=== PATIENT | male | born 1995 | race Caucasian/White ===

== ENCOUNTER → 2020-03-23 14:29 | Outpatient (BNVA) | payer OTHER, SELFPAY | PROVIDERS: Visit Provider Nurse Practitioner Family | DX: Z11.59 Encounter for screening for other viral diseases (principal) | CPT/HCPCS: 87635 ==

== ENCOUNTER 2022-04-27 21:20 | Emergency (ER) | payer MEDICAID, SELFPAY ==
[2022-04-27 21:23] VITALS: BP 112/76; PULSE 79; RESP 18; TEMP 36.6; O2SAT 98; BMI 18.3
--- NOTE | 2022-04-27 21:31 | ED_ITS ---
HPI - Allergic Reaction General: Chief complaint: Allergic Reaction Stated complaint: ALLERGIC REACTION Time Seen by Provider: 04/27/22 21:21 Source: patient History of Present Illness: HPI narrative: 26-year-old male patient complains of an allergic reaction. This happened in some proximity to eating a banana. He notes that he developed a rash, his face started itching, and he began to get sick to his stomach. He vomited 1 time. He felt like his lips were swollen. He had some shortness of breath. He took 2 Benadryl early in the process, but threw them up. He called EMS following this. He was given 1 dose of 50 mg of IV Benadryl in route, and is feeling much better. He notes that his hives have almost gone . MD complaint: allergic reaction, hives and facial swelling Onset (ago): minute(s) Exposure: unknown and food (Potentially) Associated symptoms: Reports difficulty breathing, dizziness (Resolved) and vomiting; Deny abdominal pain, dysphagia, facial swelling, hoarseness or tongue swelling Severity: moderate Treatment prior to arrival: benadryl Review of Systems Const: Denies: fever(s) or chills Eyes: Denies: change in vision ENMT: Denies: hoarseness Card: Denies: chest pain or palpitations Resp: Reports: dyspnea; Denies: productive cough or non-productive cough GI: Reports: vomiting; Denies: abdominal pain, dysphagia or diarrhea Skin/Breast: Reports: rash, pruritus and erythema Neuro: Reports: dizziness (Resolved); Denies: headache(s) All/Imm: Denies: tongue swelling or facial swelling Physical Exam Const: COMMON NORMALS: no acute distress GENERAL APPEARANCE: cooperative; not ill appearing and not frail appearing HENMT: COMMON NORMALS: normocephalic, atraumatic and Normal external nose present HEAD & SCALP: normocephalic and atraumatic FACE & SINUS: normal facial exam and face symmetric NOSE: Normal external nose present Eye: COMMON NORMALS: Equal, round and reactive pupils present and EOMs intact bilaterally PUPIL: Yes Equal, round and reactive pupils present Neck/C-Spine: GENERAL: Yes trachea midline Chest: CHEST: Yes Symmetrical chest wall rise Resp: COMMON NORMALS: normal respiratory effort, No retractions, No use of accessory muscles and clear to auscultation bilaterally AUSCULTATION: clear to auscultation bilaterally Cardio: COMMON NORMALS: regular rate and regular rhythm RATE: regular rate RHYTHM: regular rhythm GI: COMMON NORMALS: Normal to inspection, nondistended, normoactive bowel lana nds present Extremity: COMMON NORMALS: no pedal edema Neuro: ELIZABETH COMA SCALE: document GCS findings Elizabeth coma scale eye opening: Spontaneous [place] coma scale verbal response: Orientated Elizabeth coma scale motor response: Obey commands Elizabeth coma scale total score: 15 SENSORY EXAM: Yes extremities (intact) Psych: COMMON NORMALS: speech normal SPEECH: Yes normal speech Skin: NARRATIVE SKIN EXAM: Scattered urticaria. Course Vital Signs: Vital signs: Vital Signs Temperature 98 F 04/27/22 21:23 Pulse Rate 71 04/27/22 22:20 Respiratory Rate 18 04/27/22 22:20 Blood Pressure 112/76 04/27/22 22:20 Pulse Oximetry 98 04/27/22 22:20 Oxygen Delivery Me thod 04/27/22 21:23 MDM - Allergic Reaction Medical Decision Making Patient significantly improved after IV Benadryl administration. Giving him Pepcid and Solu-Medrol here. We will send him home on a tapering dose of steroid. Discharge Plan Discharge Patient Disposition: Home Clinical Impression: Allergic reaction, Urticaria Condition: Stable Prescriptions: New Medrol (Emre) 4 mg tablets,dose pack See Rx Instructions .ROUTE .COMPLEX Qty: 21 0RF Rx Instructions: orally per package directions Discharge Orders: Discharge ED (Routine); Ordered 04/27/22 Ordered By: Henok Baird Activity Restrictions/Additional Instructions: Take Benadryl 25 mg 3 times daily for the next 24 hours, then as needed. Other medications as directed. Return for worsening symptoms such as trouble breathing, vomiting, facial swelling, etc. 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
[2022-04-27] MEDS: famotidine 20 mg/2 mL INJ IVP (21:38)
[2022-04-27 22:20] VITALS: BP 112/76; PULSE 71; RESP 18; O2SAT 98
== END 2022-04-27 22:22 | disposition home or self-care (01) ==
PROVIDERS: Emergency Provider Emergency Medicine
DX: L50.0 Allergic urticaria (principal); T78.40XA Allergy, unspecified, initial encounter
CPT/HCPCS: 96374; 96375; 99284; J2930; J3490

== ENCOUNTER → 2024-11-05 13:57 | Outpatient (BNVA) | payer SELFPAY | PROVIDERS: Visit Provider Registered Nurse Neonatal Intensive Care | DX: R42 Dizziness and giddiness (principal) | CPT/HCPCS: 80053; 85025 ==

== ENCOUNTER 2025-02-10 16:14 | Emergency (ER) | payer BC, MEDICAID, SELFPAY ==
--- OUTSIDE RECORDS SUMMARY | 2016-08-16 03:47 | XMS_ITS | Continuity of Care Document ---
Author Organization [employer] [facility] ers Address [address] [place] [address] Phone Care Team Providers Care Occupational Health Manager Name Role Phone CabreraDoris arguello OD Unavailable Unavailable Allergies, Adverse Reactions, Alerts Substance Reaction Status Criticality No Known Allergies Active No Inform ation Medications Medication Instructions Dosage Effective Dates (start - stop) Status Comments No Drug Therapy Prescribed Procedures Procedure Date Script & Fit Contact; Ex Aphak 17 Refraction EST. Routine Exam Comprehensive 017 Cntct Lens Hydrophilic Sph/bill 17 Script & Fit Contact; Ex Aphak 15 EST. Routine Exam Comprehensive 015 Cntct Lens Hydrophilic Sph/bill 15 New Routine Exam Comprehensive 13 Script & Fit Contact; Ex Aphak 13 Cntct Lens Hydrophilic Sph/bill 13 EST. Routine Exam Comprehensive 010 Refraction Script & Fit Contact; Ex Aphak 10 Cntct Lens Hydrophilic Sph/bill 10 Advance Directives Directive Yes / No Effective Date File Name No Information Encounters Encounter Description Practice Location Reason(s) For Visit Diagnoses Date Provider Providers Copied on Encounter [employer] [facility], [address], [place], [place], [id number] , [place] tel: [phone] [facility] No Information Jul-3 7 Cabrera OD Doris. [address], [place], [address], [place]. tel: [phone] Referring Provider: Doris Cabrera OD, [address], [place], [address]. tel:[phone] [facility] [employer] [facility], [address], [place], [place], [id number] , [place] tel: [phone] [facility] routine exam (chief complaint) Encounter for exam of eyes and vision w abnormal findingsRegular astigmatism, bilateral Jul- 7 Cabrera OD Doris. [address], [place], [address], [place]. tel: [phone] Referring Provider: Doris Cabrera OD, [address], [place], [address]. tel:[phone] [facility], [address], [place], [place], [address] , [place] tel: [phone] [facility] routine exam (chief complaint) Eye & Vision ExaminationRegular Astigmatism Jul- 5 Cabrera OD Doris. [address], [place], [address], [place]. tel: [phone] Referring Provider: Doris Cabrera OD, [address], [place], [address]. tel:[phone] [employer] [facility], [address], [place], [place], [address] , [place] tel: [phone] [facility] Eye & Vision ExaminationRegular Astigmatism Mtai- 3 Cabrera OD Doris. [address], [place], [address], [place]. tel: [phone] Referring Provider: Doris Cabrera OD, [address], [place], [address]. tel:[phone] [employer] [facility], [address], [place], [place], [address] , [place] tel:[phone] [facility] Eye & Vision ExaminationKeratitis Nos 9-201 0 Cabrera OD Doris. [address], [place], [address], [place]. tel:[phone] Referring Provider: Doris Cabrera OD, [address], [place], [address]. tel:[phone] Family History Family Member Type Diagnosis Age At Onset Grandfather (m) Problem (finding) Cancer Grandfather (p) Problem (finding) cataract Grandmother (m) Problem (finding) HBP Grandmother (m) Problem (finding) Arthritis Mother Problem (finding) Amblyopia Uncle Problem (finding) Diabetes mellitus Payers Payer name Insurance type Covered republican ID Authoriza tion(s) VSP CI [id number] Social History Type Description Quantity Date Captured Comments Alcohol Use Details Unknown Caffeine Use Details Unknown Tobacco Use Status No Information Smoking Status No Information Sex Male Chief Complaint And Reason For Visit No Information Reason For Referral Reason For Referral No Information History Of Present Illness Encounter Date Complaint History Of Prese nt Illness routine exam The 20 year old male presents for routine exam in both eyes. Pt. states he does need to order more ctl. He is happy w/ the current brand but distance vision has changes some. He does wear glasses sometimes too. He got them online and thinks he see's okay w/ them but they are not perfect. Pt. sleeps in lenses lenses and replaces monthly. routine exam The 18 year old male presents for routine exam in both eyes. Patient's last eye exam was about 2 years ago. Patient reports decreased vision. Symptom(s) affect distance vision mildly when wearing contats. Patient noted decent comfort with lenses. 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 Functional Status Date Functional Assessmen t No Information Medications Administered Medication Instructions Dosage Effective Dates (start - stop) Status Comments No Drug Therapy Prescribed Instructions Date Instruction Additional Infor emily Encounter for examin ation of eyes and vision with abnormal findings, - Discussed diagnosis and treatment options with patient. Glasses and Contact Lens Rx given. Advised protective eyewear, including from the sun's UV rays. Pt was informed that it is healthier not to sleep in lenses and not to wear contacts if eyes are red or irritated. Patient instructed to call DONALD and return to clinic with any changes in vision, pain, redness or blur. Recommended back up glasses to use if unable to wear contact lenses for any reason. Yearly eye exams. Related to Encounter for examination of eyes and vision with abnormal findings Regular astigmatism, bilateral, OU - Contact Lens Rx final, OK to order supply. Copy of CL Rx given to patient.Advise complete exam and contact lens progress check in one year and wear lenses in. I strongly advise he does not sleep in lenses and replace monthly. Related to Regular astigmatism, bilateral Eye & Vision Examina tion, OU - Discussed diagnosis and treatment options with patient. Glasses and Contact Lens Rx given. Advised protective eyewear, including from the sun's UV rays. Pt was informed that it is healthier not to sleep in lenses and not to wear contacts if eyes are red or irritated. Patient instructed to call DONALD and return to clinic with any changes in vision, pain, redness or blur. Recommended back up glasses to use if unable to wear contact lenses for any reason. Yearly eye exams. Related to Eye & Vision Examination Regular Astigmatism, OU - Contact Lens Rx final, [place] to order supply, since pt is on spring break. Copy of CL Rx given to patient.Advise complete exam and contact lens progress check in one year and wear lenses in.Advise refit to toric lenses to correct astigmatism. Advise not to sleep in contacts and monthly replacement, to avoid more astigmatism. Related to Regular Astigmatism Myopic Astigmatism, OU - Discussed diagnosis in detail with patient. Discussed treatment options with patient. Related to Myopic Astigmatism Routine Examination, OU - New glasses Rx was given today. Patient given update CLs today. Related to Routine Examination - 1 yr TE Premium up grade referral made for LASIK. Related to Routine Examination - Return in 1 year for TE, prn R elated to Routine Examination Routine Examination, OU Myopia - New glasses Rx was given today. Patient given update CLs today. Patient given new CLs today. CL Dos & Dont's signed. Related to Routine Examination Keratitis Nos, OD - new problem monitor eyes for pain, redness, blur, light sensitivity. Discontinue CLs and call with symptoms. - Discussed diagnosis in detail with patient. Discussed treatment options with patient. Max WT 1 wk on CLs, may need to go DW, if problems. Advised back up glasses. Related to Keratitis Nos Assessments Type Assessment Date No Information Patient Care Teams Name Effective Dates (start - stop) Status Members No Information
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
[2025-02-10 16:33] VITALS: BP 156/101; PULSE 77; RESP 16; TEMP 36.9; O2SAT 98; BMI 27.1
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
--- NOTE | 2025-02-10 17:00 | W.ED.TRAUMA ---
HPI - Trauma General: Chief Complaint: Trauma Stated Complaint: Car fell on L foot Pain in L ankle Time Seen by Provider: 02/10/25 16:33 History of Present Illness: Patient is a 29-year-old male without medical issues, reports to the emergency room after a truck fell on his left big toe. Patient stated he was working on the bumper of a truck, when it came off the violeta when he was pulling on it, and landed directly on his left toe. The toenail has been up, and bleeding. This occurred just prior to arrival. He did not have any loss of consciousness. Associated symptoms: Denies abdominal pain, chest pain, fever(s), nausea, syncope or vomiting Related Data Previous Rx's ?Medication ?Instructions ?Recorded cephalexin 500 mg capsule 500 mg PO BID 3 days #6 caps 02/10/25 methocarbamol 750 mg tablet 750 mg PO Q8H PRN muscle spasm #30 02/10/25 tabs Allergies Allergy/AdvReac Type Severity Reaction Status Date / Time Penicillins Allergy unknown Verified 11/05/24 12:59 Review of Systems Const: Denies: fever(s) ENMT: Denies: throat pain, ear or mastoid pain, nasal discharge, nasal congestion or sinus pain Card: Reports: pre-syncope; Denies: chest pain, edema, swelling of feet/ankles, syncope or dyspnea on exertion Resp: Denies: dyspnea or wheezing GI: Denies: abdominal pain, nausea, vomiting or diarrhea Musc: Reports: extremity pain, extremity swelling and joint pain Skin/Breast: Denies: rash Psych: Denies: difficulty concentrating PFSH ED PFSH: Social History Smoking and tobacco/nicotine status: former use of tobacco/nicotine Physical Exam Const: COMMON NORMALS: no acute distress, average body habitus and patient oriented x3 HENMT: COMMON NORMALS: normocephalic and atraumatic HEAD & SCALP: normocephalic and atraumatic Lymph: LYMPHATIC: no lymphadenopathy noted Chest: COMMONS NORMALS: normal inspection of the chest and normal palpation of entire chest wall Resp: COMMON NORMALS: normal respiratory effort, No retractions and clear to auscultation bilaterally AUSCULTATION: clear to auscultation bilaterally Cardio: COMMON NORMALS: regular rate and regular rhythm RATE: regular rate RHYTHM: regular rhythm GI: COMMON NORMALS: Normal to inspection, nondistended, normoactive bowel sounds present and Soft to palpation PALPATION: Yes Soft to palpation : COMMON NORMALS: Yes no CVA tenderness BLADDER/KIDNEY EXAM: Yes no CVA tenderness Back/Pelvis: COMMON NORMALS: no CVA tenderness Extremity: COMMON NORMALS: full ROM and capillary refill normal LEFT LOWER EXTREMITY: Yes foot & digits (Toenail pulled forward with bleeding and ecchymosis around this area.) Neuro: COMMON NORMALS: patient oriented x3 Psych: COMMON NORMALS: mental status grossly normal, Normal thought process present and cooperative THOUGHT PROCESS: Normal thought process present Skin: NARRATIVE SKIN EXAM: As noted on left great toe. Procedures Laceration Laceration 1: Site: lower extremity Side (If applicable): left Size (cm): 3.5 Description: linear Depth: simple, single layer Local Anesthetic: lidocaine 1% Amount of anesthesia used (mL): 6 Pre-repair: wound explored, irrigated extensively, deep structures intact and extensive debridement Skin layer closed with: nylon Size (cm): 4-0 Number of sutures: 4 Technique: simple, interrupted Course Consultations: Consultation #1: Discussed the case with Dr. Kaur that recommends pulling the nail, and sewing the nailbed. Vital Signs: Vital signs: Vital Signs Temperature 98.4 F 02/10/25 16:33 Pulse Rate 67 02/10/25 19:59 Respiratory Rate 16 02/10/25 19:59 Blood Pressure 134/89 02/10/25 19:59 Pulse Oximetry 96 02/10/25 19:59 Oxygen Delivery Me thod Room Air 02/10/25 16:33 MDM - Trauma Medical Decision Making Discussed the case with on-call sfdc developer, Dr. Kaur. When I first evaluated patient, I thought he had a laceration that surrounded the back of his left big toe, as well as his toenail avulsion, however after cleaning this area, this is strictly contained within the nailbed and toe. Patient had acute comminuted fracture of the first distal phalanx. This is considered an open fracture. He did need the toe sutured underneath the nailbed which was removed carefully. I discussed the case with Dr. Kaur and the recommended nylon sutures. He will deaden the toe on follow-up to remove them. He required [address] Kaur's office will follow-up closely with this gentleman. Dr. Kaur did recommend a boot, however unfortunately we did not have a boot available at this facility. A posterior short splint will be placed and crutches until he can follow-up to obtain boot. All of his questions answered to his satisfaction. Lab Data Radiology Impressions Ankle X-Ray 02/10/25 16:16 IMPRESSION: No acute findings. Foot X-Ray 02/10/25 16:55 IMPRESSION: Acute comminuted fracture of the 1st distal phalanx. All radiology interpretation(s) finalized by discharge Discharge Plan Discharge Patient Disposition: Home Clinical Impression: Nondisplaced fracture of distal phalanx of left great toe, initial encounter for open fracture, Nail avulsion of toe Condition: Stable Prescriptions: New methocarbamol 750 mg tablet 750 mg PO Q8H PRN (Reason: muscle spasm) Qty: 30 0RF cephalexin 500 mg capsule 500 mg PO BID 3 Days Qty: 6 0RF Discharge Orders: Discharge ED (Routine); Ordered 02/10/25 Ordered By: Aleisha Morillo Referrals: nAg Kaur DPM [Physician, Podiatry] - 4-7 days Discharge Diet: Usual diet Discharge Activity: Limit activity as instructed Patient Instructions: Laceration (ED), Toe Fracture (ED), Opioid Safety, Pain Management, Patient Portal & Elza Instructions Activity Restrictions/Additional Instructions: - Follow-up with Dr. Kaur. Call his office tomorrow to make the appointment for Friday as he would like to see you on Friday Antibiotics have been sent to your pharmacy. Please obtain and take as directed. You did receive antibiotics here as well. This will cover you till in the morning. Take a probiotic or active culture yogurt to avoid infectious diarrhea Sutures will be removed through Dr. Kaur's office. He would like to take this over as part of your care. This is important to do with your fracture of your left toe. Wear your boot at all times when ambulating. You may remove at night/in bed. This is considered an open fracture. Wound care is important. Please wash this area every day with antibacterial soap, cover with mupirocin for the first 48 hours, and then Vaseline gauze may be applied, and nonadherent dressing. After 48 hours, you will utilize Vaseline/or Vaseline gauze, nonadherent dressing. Return to the ED if you have worsening pain, redness, drainage. Stand Alone Forms: Work/School Release Print Language: Arabic Coding Level of Care Code ED Composite Bond Technician for Fausto Orellana
[2025-02-10] MEDS: tetanus-dipt-pertussis 0.5 mL SDV IM (17:06)
[2025-02-10] MEDS: lidocaine-epi 1% 20 mL INJ INJECTION (17:12)
[2025-02-10 19:00] VITALS: BP 135/92; PULSE 70; RESP 16; O2SAT 93
[2025-02-10] MEDS: cefTRIAXone 1,000 MG in water for injection-sterile 2.1 ML 2.1 MG IM (19:29)
[2025-02-10] MEDS: HYDROcodone-acetaminophen 5-325 mg Tablet 1 TAB PO (19:29)
[2025-02-10] MEDS: HYDROcodone-acetaminophen 10-325 mg Tablet 2 TAB PO (19:29)
[2025-02-10] MEDS: mupirocin oint 22 gm 1 APPLIC TOPICAL (19:30)
--- NOTE | 2025-02-10 19:53 | PC.NURSE ---
medium ortho boot applied to pts left foot.
[2025-02-10 19:59] VITALS: BP 134/89; PULSE 67; RESP 16; O2SAT 96
== END 2025-02-10 19:57 | disposition home or self-care (01) ==
PROVIDERS: Emergency Provider Physician Assistant
DX: S92.425A Nondisplaced fracture of distal phalanx of left great toe, initial encounter for closed fracture (principal); S91.202A Unspecified open wound of left great toe with damage to nail, initial encounter; S91.112A Laceration without foreign body of left great toe without damage to nail, initial encounter; Z87.891 Personal history of nicotine dependence; W20.8XXA Other cause of strike by thrown, projected or falling object, initial encounter
CPT/HCPCS: 12042; 73610; 73630; 90471; 90715; 96372; 99284; 99291; J0696; J9999

== ENCOUNTER → 2025-02-24 11:19 | Outpatient (BNVA) | payer BC, MEDICAID, SELFPAY | PROVIDERS: Visit Provider Podiatrist Foot & Ankle Surgery | DX: S92.422B Displaced fracture of distal phalanx of left great toe, initial encounter for open fracture (principal); W23.0XXA Caught, crushed, jammed, or pinched between moving objects, initial encounter | CPT/HCPCS: 73630 ==